=== PATIENT | female | born 1955 | race Caucasian/White ===

== ENCOUNTER 2017-01-14 20:13 | Observation (INO) | payer MEDICARE ==
[~2017-01-14] VITALS: Ht 152.4 cm; Wt 70.2 kg
[2017-01-14 21:28] VITALS: BP 112/65; PULSE 110; RESP 14; O2SAT 95
--- NOTE | 2017-01-14 21:29 | NUR ---
ADMIT NOTE-direct transfer from [facility] arrived at around 2114, alert and oriented. Feeling weak. Family at bedside. Able to transfer self to bed with steady gait.
--- NOTE | 2017-01-14 21:48 | NUR ---
Med Req Not Done Pt did not bring medications but states she uses pharmacy. Will attempt to get records.
[2017-01-14] MEDS ORDERED: Alum-Mag Hydrox-Simeth 30 mL Suspension PO PRN (22:20)
[2017-01-14] MEDS ORDERED: Labetalol 5 mg/mL 4 mL Inj IVPUSH PRN (22:20)
[2017-01-14] MEDS ORDERED: Ondansetron 2 mg/mL 2 mL Inj IVPUSH PRN (22:20)
[2017-01-14] MEDS ORDERED: Polyethylene Glycol (PEG) 17 Gm Powder PO PRN (22:20)
--- NOTE | 2017-01-14 23:20 | PCM.HPMED ---
Subjective Date of Service January 14, 2017 Primary Provider: Admitting Physician: Urszula Alcala DO Primary Care Physician: Sebastien Fortune MD Attending Physician: Urszula Alcala DO Admit Status: Direct Admit (from [facility]), Remote Telemetry Chief Complaint: Syncope History of Present Illness: Patient is a 61-year-old female with history significant for hypertension, hyperlipidemia, who was transferred from [facility] for possible TIA due to [facility] not having MRI capabilities. Patient states she was bouncing on an exercise ball for about 30 minutes outside when she slid off of and hit her bottom on concrete floor. Friends who helps her out noticed that she was disoriented and had some slurred speech, denies any facial droops or one-sided weakness. Patient denies hitting her head or loss of consciousness. Per family and friends, patient remained disoriented for the next 30 minutes and almost fell getting into her car, was "not herself". Patient endorses feeling cold, wearing an extra sweatshirt on this warm day today. Patient denies any headaches, fevers, nausea, vomiting, vision changes, weakness, dysuria. Patient also reports of ongoing diarrhea multiple times a day for the past 4 weeks, which started shortly after started on new medication (etodolac) for her arthritis. Also has had no appetite during this time. No recent antibiotic use or hospitalizations. Both patient and family have witnessed patient's worsening fatigue during this 4 weeks with patient taking naps during the day which is unusual for her. With recent mounting personal stress. Dr. luan magana her PCP has given her medications for this, but has not improved. Patient denies any blood in her stool, but endorses occasional dark stools. At [facility] vitals T 30 8.3P 104, R 24, BP 154/71, oxygen saturation 88% on RA. Labs significant for H/H of 10.3/31.5, WBC 13.4, glucose 116, sodium 133. Creatinine of 1.07. Chest x-ray negative for any acute radiographic abnormalities. CT chest without contrast showed no findings of acute infarct, acute emergent or mass. Patient was given 324 mg of aspirin. Patient admitted under observation for possible stroke workup. Review of Systems: A comprehensive review of systems has been conducted with the patient and found to be negative except what is mentioned in the HPI. Allergies Uncoded Allergies: opiates/itch (Adverse Reaction, Mild, itch, 01/14/17) Home Medications Lisinopril 10 mg by mouth daily Lovastatin 40 mg by mouth daily at bedtime Nortriptyline 75 mg by mouth twice a day Clonazepam 0.5 mg by mouth twice a day Etodolac 40 mg by mouth twice a day - started 6 weeks ago by rheumatology Tiffani 500 mg by mouth twice a day PMH Hypertension Hyperlipidemia Hyperuricemia Arthropathy Summary a cyst next saline fibromyalgia HLA-B27 positive Depression with anxiety Surgical History Family History Father with diabetes Mother with diabetes and heart failure Sister with fibromyalgia Son with surgery ASIS Social History Hx Alcohol Use: Yes Alcoholic Drinks Per Day: occasional "once two months" Hx Substance Use: No Hx Tobacco Use: No Smoking Status: Never Smoker Living Arrangement: with Family (local resident with good support) Exam Vital Signs Vital Sign - Last Date Time Temp Pulse Resp B/P Pulse Ox O2 Delivery O2 Flow Rate FiO2 01/14/17 21:28 37.2 110 14 112/65 95 Room Air Exam General: No acute distress, well-developed, well-nourished, appropriately interactive and cooperative, appears flushed HEENT: Normocephalic, atraumatic. PERRL Anicteric sclerae, moist conjunctivae. Dry oral mucosal. Neck: Supple with full range of motion. No JVD. No bruits. No lymphadenopathy. Good skin turgor. Cardiovascular: Regular rate and rhythm with no murmurs, rubs, or gallops appreciated Pulmonary: Clear to auscultation bilaterally with no crackles, wheezes, or rhonchi. Normal respiratory effort with no use of accessory muscles. Abdomen: Bowel tones present. Soft, nondistended. No hepatosplenomegaly or masses appreciated. Tenderness to palpation at left upper quadrant. Extremities: No clubbing, cyanosis, edema Skin: Normal temperature, turgor, and texture; no rash Neurological: Patient is alert, attentive and oriented. Speech is clear and fluent, with good comprehension. Visual king are full to confrontation. PERRLA. EOMI. Pupils are reactive to light. No eye deviation noted. No ptosis noted. Facial sensation intact in all 3 areas bilaterally. Face is symmetric with normal eye closure and smile. Hearing normal to rubbing fingers. Phonation normal. Turning of head and shoulder shrugs intact. Tongue is midline with normal movements no atrophy noted. No pronator drift appreciated. Muscle bulk and tone are normal. Strength full bilaterally. Sensation intact in all extremities. No dysmetria noted on finger to nose. No abnormal extraneous movements. Psychiatric: Normal mood and affect. Normal thought content. Lab and Diagnostics Labs Sodium 133 Potassium 4.2 Chloride 95 Bicarbonate is 28 BU and 13 Creatinine 1.07 Hemoglobin 10.3 Hematocrit 31.5 WBC 13.4 Platelet 252 Total bilirubin 0.5 Glucose 116 X-Rays, CTs and MRIs Per records from [facility]: Chest x-ray negative for any acute radiographic abnormalities. CT chest without contrast showed no findings of acute infarct, acute emergent or mass. Assessment & Plan Patient is a 61-year-old female with history significant for hypertension, hyperlipidemia, who was transferred from [facility] for possible TIA due to [facility] not having MRI capabilities. Patient states she was bouncing on an exercise ball for about 30 minutes outside when she slid off of and hit her bottom on concrete floor. Friends who helps her out noticed that she was disoriented and had some slurred speech, denies any facial droops or one-sided weakness. Patient denies hitting her head or loss of consciousness. Per family and friends, patient remained disoriented for the next 30 minutes and almost fell getting into her car, was "not herself". Patient denies any headaches, fevers, chills, nausea, vomiting, vision changes, weakness, dysuria. Patient also reports of ongoing diarrhea multiple times a day for the past 4 weeks, which started shortly after started on new medication (etodolac) for her arthritis. Both patient and family have witnessed patient's worsening fatigue during this 4 weeks with patient taking naps during the day which is unusual for her. With recent mounting personal stress. Dr. luan magana her PCP has given her medications for this, but has not improved. Patient denies any blood in her stool, but endorses occasional dark stools. At [facility] vitals T 38.3, P 104, R 24, BP 154/71, oxygen saturation 88% on RA. Labs significant for H/H of 10.3/31.5, WBC 13.4, glucose 116, sodium 133. Creatinine of 1.07. Chest x-ray negative for any acute radiographic abnormalities. CT chest without contrast showed no findings of acute infarct, acute emergent or mass. Patient was given 324 mg of aspirin. Patient admitted under observation for possible stroke workup. SIRS (T 38.3, P 104, R 24, WBC 13.4), present on admission. Acute. - Chest x-ray negative for any acute cardiopulmonary findings. UA pending. - No source of infection found at this time. subacute h/o diarrhea - IV fluids TIA, present on admission. Acute. - All symptoms now resolved, CT brain negative - telemetry - neuro checks Q4H - Lipids, A1c pending - Aspirin started at [facility], will continue - Cont home statin - Swallow eval, PT, OT ordered - Echocardiogram and MRA in am Diarrhea, present on admission. Ongoing. - Stool PCR pending Chronic conditions: Hypertension - continue home dose lisinopril Hyperlipidemia - continue home dose lovastatin Arthropathy - Tylenol as needed, hold etodolac Fibromyalgia - continue home dose nortriptyline Depression with anxiety - continue home dose fluoxetine, clonazepam only as needed Acetaminophen-fever/headache/mild/moderate pain Antiemetics, as needed Bowel regimen, as needed. Patient status: Patient was admitted under observation status with expected length of stay lesser than two midnights. Pain Evaluation: Adequate Pain Control GI Prophylaxis: Proton Pump Inhibitor VTE Prophylaxis: Sub-Q Heparin (Unfractionated) Resuscitation Status: CPR: Attempt Resuscitation Attending Statement The patient was seen and examined together with house staff on 01/14/2017 and I agree with the history, exam and plan as outlined in the note above. Smith Parks DO January 14, 2017 22:20 Urszula Alcala DO January 15, 2017 03:26
[2017-01-15] VITALS (7 sets, daily range): BP systolic 110–146; BP diastolic 65–76; PULSE 92–107; RESP 16–18; O2SAT 92–97
[2017-01-15] MEDS: 0.9% Sodium Chloride 1,000 ML IV SCH ×4 (00:12→15:05)
[2017-01-15] MEDS: Heparin 5,000 Unit/mL Inj SUBQ SCH ×2 (00:12→09:39)
[2017-01-15 06:29] LABS: BASOPHILS % (AUTO) 0.5 % (0-3); EOSINOPHILS % (AUTO) 0.6 % (0-5); MONOCYTES % (AUTO) 6.4 % (4-12); Mean Corpuscular Hemoglobin 28.7 pg (27.0-35.0); Mean Corpuscular Volume 91.6 fL (81-100); NEUTROPHILS % (AUTO) 79.2 % (40-74); Platelet Count 247 bil/L (150-400)
--- NOTE | 2017-01-15 08:40 | NUR ---
Off unit Pt off unit for scans. Tele notified. IV-SL. Pt denied pain. Scheduled exams changed to Stroke Protocol-from the original ordered ones, orders confirmed with physician. Addendum: 01/15/17 at 1000 by REG WONG RN Pt back from scans. On tele. IVF infusing. Denies pain.
--- NOTE | 2017-01-15 09:42 | DRSVH ---
PROCEDURE: MRI BRAIN WITHOUT CONTRAST ([id number]) INDICATIONS: R/O CVA TECHNIQUE: Noncontrast axial T1 spin echo, axial T2 fast spin echo, sagittal and axial FLAIR, coronal T2 fast sp in echo, axial gradient echo, axial diffusion and ADC through the brain. COMPARISON: None. FINDINGS: Image quality: Excellent. CSF Spaces: Basal cisterns are patent. No extra-axial fluid collections. Ventricles are normal in size and shape. Brain: No intracranial masses or hemorrhage. Thomas/white matter interface is normal. Brainstem appe ars normal. Diffusion-weighted images demonstrate no acute ischemic insult. There is only a mild de gree of microvascular atherosclerotic change. No chronic ischemic insults. Normal intravascular josé miguel w voids are present. Skull and face: Calvarium has normal marrow signal. Orbits appear normal. Sinuses: Sinuses and mastoids are clear. IMPRESSION: A mild degree of microvascular atherosclerotic change is present but no stroke or mass, or evidence of intracranial hemorrhage. Dictated by: Khanh Jackson M.D. on 01/15/2017 at 9:37 Approved by: Khanh Jackson M.D. on 01/15/2017 at 9:40
[2017-01-15] MEDS ORDERED: LISI10TA PO (10:22)
[2017-01-15] MEDS ORDERED: NORT75CA PO (10:22)
[2017-01-15] MEDS ORDERED: KLO5T PO (10:22)
[2017-01-15] MEDS ORDERED: ZOLP10TA5 PO (10:22)
[2017-01-15] MEDS ORDERED: LOVA40TA PO (10:22)
[2017-01-15] MEDS ORDERED: ETOD400T PO (10:22)
[2017-01-15] MEDS ORDERED: CLOT15CR5 TOPICAL (10:22)
[2017-01-15] MEDS ORDERED: FLUO20CA25 PO (10:22)
[2017-01-15] MEDS ORDERED: [UNRECOGNIZED DRUG - CODE] PO (10:23)
[2017-01-15] MEDS ORDERED: [UNRECOGNIZED DRUG - CODE] PO (10:23)
[2017-01-15] MEDS ORDERED: MAGN500T4 PO (10:24)
--- NOTE | 2017-01-15 10:30 | DRSVH ---
PROCEDURE: CT ANGIO HEAD AND NECK (P) INDICATIONS: CONFUSION SLURRED SPEECH AND DISORIENTATION TECHNIQUE: Pre-contrast 4.5 mm thick sections acquired from the foramen magnum to the vertex. After the adminis tration of intravenous contrast, 1 mm thick sections acquired from the aortic arch through the [place] of [place]. Post-contrast 4.5 mm thick sections then re-acquired from the foramen magnum to the vert ex. 3-dimensional gcxoexa-wuvslpqps-thsqsuvzks (MIP) and/or volume rendering reformats were acquired of the central intracranial vasculature and neck separately. For radiation dose reduction, the foll owing was used: automated exposure control, adjustment of mA and/or kV according to patient size. COMPARISON: [facility], MR, MR BRAIN WO CON, 01/15/2017, 8:48. FINDINGS: Image quality: Excellent. BRAIN: CSF spaces: Ventricles are normal in size and shape. Basal cisterns are patent. No extra-axial flu id collections. Brain: No midline shift. No intracranial bleeds or masses. Thomas-white matter interface appears int act. Skull and face: Calvarium and facial bones appear intact, without suspicious lesions. Orbits appear normal. Sinuses: Sinuses and mastoids are clear. HEAD CT ANGIOGRAPHY: Anterior circulation: Cavernous segments of the internal carotid arteries are not well seen secondary to vascular calcifications. Intracranial internal carotid arteries are otherwise normal in size and flow. The flow within the paired anterior cerebral arteries is normal and symmetric. The flow withi n the middle cerebral arteries is normal and symmetric. The anterior communicating artery is seen. No aneurysms are seen. Posterior circulation: Visualized portions of the vertebral arteries demonstrate normal caliber, and join to form a normal appearing basilar artery. Flow within the posterior cerebral arteries is norm al and symmetric. No aneurysms are seen. NECK CT ANGIOGRAPHY: Carotid system: The great vessels demonstrate a conventional anatomy as they arise from the aortic a rch. The origins of the common carotid arteries appear patent. The common carotid arteries demonstr ate normal caliber and courses. The bifurcation regions are both widely patent. The internal caroti d arteries demonstrate normal calibers and courses. Posterior circulation: The origins of the vertebral arteries both appear widely patent. The more gillette perior extracranial portions of both vertebral arteries also demonstrate normal courses and calibers. They join to form a normal appearing basilar artery. Soft tissues: Visualized neck soft tissues demonstrate no suspicious abnormalities. Bones: No suspicious bony lesions. Visualized cervical spine appears normally aligned. IMPRESSION: 1. No acute intracranial abnormality. 2. No evidence of arterial stenosis/occlusion within the head and neck. Dictated by: Justino Young M.D. on 01/15/2017 at 10:24 Approved by: Justino Young M.D. on 01/15/2017 at 10:28
--- NOTE | 2017-01-15 10:47 | NUR ---
Evaluation completed. Please go to "Notes" then click on "Assessments and Notes" (bottom left corner of screen). Then select appropriate discipline tab on top of screen.
--- NOTE | 2017-01-15 12:39 | NUR ---
RIZWAN explained to pt and her who is at bedside. Copy of ASTORGA given to pt.
--- NOTE | 2017-01-15 12:44 | NUR ---
Evaluation completed. Please go to "Notes" then click on "Assessments and Notes" (bottom left corner of screen). Then select appropriate discipline tab on top of screen.
--- NOTE | 2017-01-15 15:06 | NUR ---
Social Work: Initial Assessment / Readiness for d/c Data: Pt is a 61 y/o female admitted for TIA. Pt's PCP is Dr Fortune, pt's insurance is [employer] plan fo [place] Medicare. EMR reviewed. Readmit score not listed. FLASH DEVELOPER met with pt and spouse at bedside, role explained. Pt states that she lives with her in [place] where they live in a single story home where she uses do DME. Pt does not drive, pt has no hx of HH or SNF, no LTC or VA benefits, and is not a caregiver. No d/c planning needs identified at this time. FLASH DEVELOPER will continue to follow if needs arise. Assessment: Pt who is independent at baseline. Plan: Pt will d/c home via POV when medically stable, possibly tonight per MD at rounds. No d/c planning needs identified at this time. FLASH DEVELOPER will continue to follow if needs arise. RADHA Whaley Addendum: 01/15/17 at 1509 by CAMERON GARCIA Amended: Links added.
--- NOTE | 2017-01-15 16:36 | DRSVH ---
[facility] [address] [place] [address] Echocardiogram Report Name: OSWALDO WALTERS KStudy Date: 01/15/2017 Height: 60 in Hospital Exam Location: [facility] Weight: 155 lb Gender: Female BSA: 1.7 m2 : 1955 Age: 61 yrs BP: 110/70 m mHg Reason For Study: CVA Ordering Physician: [facility] Performed By: Constantine Leon Referring Physician: PETER OSMAN Interpretation Summary 1) Normal left ventricular thickness, size, wall motion, and systolic function (EF 65-70%). 2) Normal right ventricular size and function. 3) No significant valvular disease. 4) Injection of contrast documented no interatrial shunt. 5) No prior Echo available for comparison. Procedure: A two-dimensional transthoracic echocardiogram with color flow and Doppler was performed. The study quality was technically adequate. There is no prior echocardiogram noted for this patient. A saline contrast injection was performed to assess for cardiac shunting. The patient was in normal sinus rhythm during the exam. Left Ventricle: The left ventricle is normal in size. Left ventricular wall thickness is at the upper limits of normal. The ejection fraction is estimated to be 65-70%. Left ventricular wall motion is normal. Right Ventricle: The right ventricle is normal in size, thickness and function. Atria: The left atrium is mildly dilated. Right atrial size is normal. There is no Doppler evidence for an interatrial shunt. Injection of contrast documented no interatrial shunt. Mitral Valve: The mitral valve is normal. There is no mitral regurgitation noted. Aortic Valve: The aortic valve is normal in structure and function. There is no aortic valve stenosis. No aortic regurgitation is present. Tricuspid Valve: The tricuspid valve is not well visualized, but is grossly normal. Pulmonary artery pressures cannot be estimated because of the lack of a measurable TR jet velocity. Pulmonic Valve: The pulmonic valve is not well seen, but is grossly normal. There is a trace or physiologic amount of pulmonic regurgitation. Great Vessels: The aortic root is normal size. The ascending aorta is at the upper limits of normal in size. The pulmonary artery is normal size. The IVC is of normal diameter and collapses greater than 50% with a sniff. This suggests a low right atrial pressure of 3 mm Hg. Pericardium/ Pleura There is no pericardial effusion. There is no pleural effusion. MMode/2D Measurements & Calculations LVIDd: 3.8 cm RA long axis LVOT diam LVIDs: 2.4 cm LA A2 area: 16.1 cm FS: 37.7 % LA A4 area: 18.7 cm RA area Ao root diam EPSS: 0.22 cm LA length (vol): 4.9 cm IVSd: 0.89 cm LA vol: 52.4 ml : 10.6 cm asc Aorta LVPWd: 1.0 cm LA vol index RA vol: 21.6 mlDiam: 3.5 cm RA : 31.3 ml/m2 : 12.9 mm2 LV rasmussen. diameter/BSA LV sys. diameter/BSA RVD1 (basal) RVD2 (mid) (cm/m^2): 2.3 (cm/m^2): 1.4 : 2.7 cm TAPSE: 2.4 cm Doppler Measurements & Calculations Ao V2 max: 160.4 cm/secMV E max basil MV E/A: 0.87 PA V2 max Ao max P.3 mmHg : 101.1 cm/sec Med Peak E' Basil : 98.6 cm/sec Ao mean P.3 mmHg MV A max basil PA mean PG LVOT Max Basil : 116.4 cm/sec E/E' med: 19.2 : 1.9 mmHg : 129.7 cm/sec Lat Peak E' Basil ANNA(I,D): 2.9 cm sev ratio: 0.98 E/E' lat: 23.4 E/e' average MV dec time: 0.20 sec Ao V2 mean LV V1 max PG PA V2 mean : 107.5 cm/sec : 66.1 cm/sec Ao V2 VTI: 28.3 cm LV V1 VTI: 27.7 cmPA pr(Accel) ANNA(V,D): 2.4 cm2 : 55.6 mmHg ANNA indexed to BSA (cm^2/m^2): 1.7 Reading Physician:04:36 PM
--- NOTE | 2017-01-15 17:28 | PCM.DIMED ---
Discharge Instructions Date of Service January 15, 2017 Dates of Hospitalization January 14, 2017 at 21:11 Discharge Diagnosis Discharge Diagnosis # Acute and transient non-specific neurologic symptom, present prior to admission. Resolved - Unclear exact etiology but possibly due to acute concussion vs transient ischemic attack (TIA) # Chronic diarrhea, present on admission. Ongoing. - Stool PCR negative # Chronic Hypertension. Stable # Hyperlipidemia # Arthropathy # Fibromyalgia, chronic. stable. # Depression with anxiety. stable. Diet Discharge Diet: Low fat, Low Sodium, Heart Healthy Activity Discharge Activity: No restrictions Call your provider Call your provider for: Fever or Chills, Shortness of breath, Bleeding, Chest pain, Excessive diarrhea, Weakness (unilateral) Patient Instructions Patient Instructions Seek immediate medical attention if any new or worsening signs or symptoms occur. Follow-up plan 1. Followup with your primary care provider within one week. Follow-up Provider: Sebastien Fortune MD Follow-up with PCP in: 1 week Arthur Wilhelm January 15, 2017 17:28
--- NOTE | 2017-01-15 18:02 | PCM.DC.MED ---
Discharge Summary Date of Service January 15, 2017 Dates of Hospitalization Date of Hospital Admission January 14, 2017 at 21:11 Date of Discharge: January 15, 2017 Providers: Admitting Physician: Urszula Alcala DO Primary Care Physician: Sebastien Fortune MD Attending Physician: Urszula Alcala DO Diagnosis at Time of Discharge Diagnosis at Time of Discharge # Acute and transient non-specific neurologic symptom, present prior to admission. Resolved - Unclear exact etiology but possibly due to acute concussion vs transient ischemic attack (TIA) # Chronic diarrhea, present on admission. Ongoing. - Stool PCR negative # Chronic Hypertension. Stable # Hyperlipidemia # Arthropathy # Fibromyalgia, chronic. stable. # Depression with anxiety. stable. Procedures XRay, CTs & MRIs Per records from [facility]: Chest x-ray negative for any acute radiographic abnormalities. CT chest without contrast showed no findings of acute infarct, acute emergent or mass. Date of Service: 01/15/17799 PROCEDURE: CT ANGIO HEAD AND NECK (P) IMPRESSION: 1. No acute intracranial abnormality. 2. No evidence of arterial stenosis/occlusion within the head and neck. Dictated by: Justino Young M.D. on 01/15/2017 at 10:24 Approved by: Justino Young M.D. on 01/15/2017 at 10:28 Date of Service: 01/15/17799 PROCEDURE: MRI BRAIN WITHOUT CONTRAST ([id number]) IMPRESSION: A mild degree of microvascular atherosclerotic change is present but no stroke or mass, or evidence of intracranial hemorrhage. Dictated by: Khanh Jackson M.D. on 01/15/2017 at 9:37 Approved by: Khanh Jackson M.D. on 01/15/2017 at 9:40 Cardiac Echo Impression Date of Service: 01/15/17799 Echocardiogram Report Interpretation Summary 1) Normal left ventricular thickness, size, wall motion, and systolic function (EF 65-70%). 2) Normal right ventricular size and function. 3) No significant valvular disease. 4) Injection of contrast documented no interatrial shunt. 5) No prior Echo available for comparison. Reading Physician:04:36 PM Brief History As noted in H&P by Dr. Parks: Patient is a 61-year-old female with history significant for hypertension, hyperlipidemia, who was transferred from [facility] for possible TIA due to [facility] not having MRI capabilities. Patient states she was bouncing on an exercise ball for about 30 minutes outside when she slid off of and hit her bottom on concrete floor. Friends who helps her out noticed that she was disoriented and had some slurred speech, denies any facial droops or one-sided weakness. Patient denies hitting her head or loss of consciousness. Per family and friends, patient remained disoriented for the next 30 minutes and almost fell getting into her car, was "not herself". Patient endorses feeling cold, wearing an extra sweatshirt on this warm day today. Patient denies any headaches, fevers, nausea, vomiting, vision changes, weakness, dysuria. Patient also reports of ongoing diarrhea multiple times a day for the past 4 weeks, which started shortly after started on new medication (etodolac) for her arthritis. Also has had no appetite during this time. No recent antibiotic use or hospitalizations. Both patient and family have witnessed patient's worsening fatigue during this 4 weeks with patient taking naps during the day which is unusual for her. With recent mounting personal stress. Dr. luan magana her PCP has given her medications for this, but has not improved. Patient denies any blood in her stool, but endorses occasional dark stools. At [facility] vitals T 30 8.3P 104, R 24, BP 154/71, oxygen saturation 88% on RA. Labs significant for H/H of 10.3/31.5, WBC 13.4, glucose 116, sodium 133. Creatinine of 1.07. Chest x-ray negative for any acute radiographic abnormalities. CT chest without contrast showed no findings of acute infarct, acute emergent or mass. Patient was given 324 mg of aspirin. Patient admitted under observation for possible stroke workup. Hospital Course # SIRS (T 38.3, P 104, R 24, WBC 13.4), reported prior to admission. - During this hospital she remained afebrile and no obvious source of infection was identified. # Acute and transient non-specific neurologic symptom, present prior to admission. Resolved - Unclear exact etiology but possibly due to acute concussion vs transient ischemic attack (TIA) - MRI brain and echo were negative and unremarkable as noted above - Patient remained neurologically asymptomatic during this hospital # Chronic diarrhea, present on admission. Ongoing. - Unclear etiology - Stool PCR negative - Further followup and workup deferred to PCP as outpatient. Chronic conditions: Hypertension - continue home dose lisinopril Hyperlipidemia - continue home dose lovastatin Arthropathy - stable Fibromyalgia - continue home dose nortriptyline Depression with anxiety - continue home dose fluoxetine, clonazepam by day of d/c lungs CTA bilaterally. Exam Vital Signs (Last) Date Time Temp Pulse Resp B/P Pulse Ox O2 Delivery O2 Flow Rate FiO2 01/15/17 14:14 36.6 92 16 131/72 97 Room Air Test 01/14/17 22:45 01/15/17 06:19 Triglycerides Level 149mg/dL (0-149) Cholesterol Level 148mg/dL (100-199) LDL Cholesterol, Calculated 69.200mg/dL (0-99) VLDL Cholesterol 29.800mg/dL HDL Cholesterol 49mg/dL (>39) Cholesterol/HDL Ratio 3.02 (0.0-4.4) Hold [place] Top Tube Received (Received) White Blood Count 7.8th/mm3 (3.8-10.1) Red Blood Count 3.45mil/mm3 (3.90-5.20) Hemoglobin 9.9g/dL (12.0-15.6) Hematocrit 31.6% (35.0-46.0) Mean Corpuscular Volume 91.6fL (81-100) Mean Corpuscular Hemoglobin 28.7pg (27.0-35.0) Mean Corpuscular Hemoglobin Concent 31.3% (32.0-37.0) Red Cell Distribution Width 14.9% (12.3-15.4) Platelet Count 247bil/L (150-400) Neutrophils (%) (Auto) 79.2% (40-74) Lymphocytes (%) (Auto) 12.9% (14-46) Monocytes (%) (Auto) 6.4% (4-12) Eosinophils (%) (Auto) 0.6% (0-5) Basophils (%) (Auto) 0.5% (0-3) Sodium Level 133mEq/L (134-144) Potassium Level 4.3mEq/L (3.5-5.2) Chloride Level 96mEq/L (97-108) Carbon Dioxide Level 23mmol/L (18-29) Blood Urea Nitrogen 12mg/dL (8-27) Creatinine 0.71mg/dL (0.57-1.00) Estimat Glomerular Filtration Rate 119mL/min (>59) Glucose Level 141mg/dL (60-99) Calcium Level 8.2mg/dL (8.5-10.1) Discharge Medications Discharge Medications Aspirin/Caffeine ([employer]) 1 Each Tablet 2 TABLET PO DAILY (Reported ) Etodolac (Etodolac) 400 Mg Tablet 400 MG PO BID (Reported) Fluoxetine (Fluoxetine) 20 Mg Capsule 40 MG PO DAILY (Reported) Lisinopril (Lisinopril) 10 Mg Tablet 10 MG PO DAILY (Reported) Lovastatin (Lovastatin) 40 Mg Tablet 40 MG PO HS (Reported) Nortriptyline (Nortriptyline) 75 Mg Capsule 75 MG PO HS (Reported) As needed Aspirin/Sod Bicarb/Citric Acid Effer ([employer] Effer) 1 Each Tablet.eff 1 TABLET PO DAILY PRN PRN For Indigestion (Reported) Clonazepam (Clonazepam) 0.5 Mg Tablet 0.5 MG PO BID PRN PRN For Anxiety ( Reported) Clotrimazole/Betamethasone Dip (Lotrisone) 15 Gm Cream..g. 1 APPLIC TOPICAL BID PRN PRN rash (Reported) Magnesium Oxide (Villeda) 500 Mg Tablet 500 MG PO BID PRN PRN For Constipation (Reported) Zolpidem (Zolpidem) 10 Mg Tablet 10 MG PO HS PRN PRN Insomnia (Reported) Followup Plan Disposition: Home Follow-up plan 1. Followup with your primary care provider within one week. Discharge Diet: Low fat, Low Sodium, Heart Healthy Discharge Activity: No restrictions Patient Instructions Seek immediate medical attention if any new or worsening signs or symptoms occur. patient expresses clear verbal understanding of above plans and recommendations and agrees. Follow-up Provider: Sebastien Fortune MD Follow-up with PCP in: 1 week Time spent 35 min copies to: Sebastien Fortune MD, Masoud January 15, 2017 18:01
--- NOTE | 2017-01-15 18:26 | NUR ---
Discharge Pt d/c home with at 1810 on wc by primary RN. IV & tele d/c. VSS. All personal belongings left home with pt. Discharge info discussed with family, pt denied having questions.
== END 2017-01-15 18:09 | disposition home or self-care (01) ==
LOC: MPC 21:11
PROVIDERS: ADMIT Internal Medicine; ATTEND Internal Medicine
DX: R41.0 Disorientation, unspecified (principal); R47.81 Slurred speech; G45.9 Transient cerebral ischemic attack, unspecified; W17.89XA Other fall from one level to another, initial encounter; Y93.A3 Activity, aerobic and step exercise; Y92.9 Unspecified place or not applicable; R19.7 Diarrhea, unspecified; I10 Essential (primary) hypertension; E78.5 Hyperlipidemia, unspecified; M12.9 Arthropathy, unspecified; M79.7 Fibromyalgia; F41.8 Other specified anxiety disorders; Z79.82 Long term (current) use of aspirin
CPT/HCPCS: 36415; 70496; 70498; 70551; 80048; 80061; 82274; 83036; 85025; 87507; 89055; 92610; 97161; C8929; G0378; G0379; J1644; J7030; Q9967